=== PATIENT | female | born 1945 | race Caucasian/White ===

== ENCOUNTER 2017-08-27 11:35 | Day surgery (SDC) | payer MEDICARE, MEDICAID ==
[~2017-08-27] VITALS: Ht 165.1 cm; Wt 72.7 kg
[2017-08-27 11:45] VITALS: BP 169/71
[2017-08-27] MEDS ORDERED: MIDAZolam 5mg/5ml vial ONE (11:45)
[2017-08-27] MEDS ORDERED: fentaNYL/PF 50MCG/1 ML 2ML syringe ONE (11:45)
[2017-08-27] MEDS ORDERED: LIDOcaine Viscous 15ml cup ONE (11:46)
[2017-08-27] MEDS ORDERED: VALS80TA2 PO (11:56)
[2017-08-27] MEDS ORDERED: ATOR10TA87 PO (11:56)
[2017-08-27] MEDS ORDERED: CLOP75TA35 PO (11:56)
[2017-08-27] MEDS ORDERED: ASPI81TA52 PO (11:56)
[2017-08-27 13:50] VITALS: BP 139/70
[2017-08-27 14:00] VITALS: BP 140/56
[2017-08-27 14:10] VITALS: BP 137/68
[2017-08-27 14:20] VITALS: BP 132/57
== END 2017-08-27 14:40 | disposition home or self-care (01) ==
LOC: GI LAB 11:35
PROVIDERS: ATTEND Internal Medicine Gastroenterology
DX: D12.0 Benign neoplasm of cecum (principal); K62.1 Rectal polyp; K57.30 Diverticulosis of large intestine without perforation or abscess without bleeding; K29.50 Unspecified chronic gastritis without bleeding; K29.80 Duodenitis without bleeding; E78.5 Hyperlipidemia, unspecified; Z90.49 Acquired absence of other specified parts of digestive tract; Z90.89 Acquired absence of other organs; Z90.710 Acquired absence of both cervix and uterus; Z79.82 Long term (current) use of aspirin; Z98.890 Other specified postprocedural states; Z79.899 Other long term (current) drug therapy
CPT/HCPCS: 43239; 45385; 99153; G0500; J2250; J3010; J7030; 88305; A4620

== ENCOUNTER 2020-08-12 07:52 | Day surgery (SDC) | payer MEDICARE, MEDICAID ==
[~2020-08-12] VITALS: Ht 160 cm; Wt 73.4 kg
[2020-08-12] VITALS (11 sets, daily range): BP systolic 107–161; BP diastolic 43–57
[~2020-08-12 07:52] MED LIST: ASPI81TA52 PO; ATOR10TA87 PO; CLOP75TA34 PO; VALS80TA2 PO
[2020-08-12] MEDS ORDERED: fentaNYL/PF 50MCG/1 ML 2ML syringe ONE (09:12)
[2020-08-12] MEDS ORDERED: iohexol 350 MG/ML 50ML vial IV ONE (09:12)
[2020-08-12] MEDS ORDERED: heparin 1,000unit/ml 10ml vial 10 ML ONE (09:12)
[2020-08-12] MEDS ORDERED: iohexol 350MG/ML 100ml bottle IV ONE (09:12)
[2020-08-12] MEDS ORDERED: midazolam 1 mg/ML 2ml injection ONE ×2 (09:12→11:37)
[2020-08-12] MEDS ORDERED: LIDOcaine 1% (10mg/ml)w/preservative injection 20ml MDV ONE (09:12)
[2020-08-12 09:18] LABS: BASOPHILS # (AUTO) 0.1 X10'3 (0-0.2); BASOPHILS % (AUTO) 1.5 % (0-1); EOSINOPHILS # (AUTO) 0.2 X10'3 (0-0.9); EOSINOPHILS % (AUTO) 4.6 % (0-6); HEMATOCRIT 32.1 % (35.0-45.0); HEMOGLOBIN 10.9 g/dl (12.0-16.0); LYMPHOCYTES # (AUTO) 1.4 X10'3 (1.1-4.8); LYMPHOCYTES % (AUTO) 27.8 % (21-51); MEAN CORPUSCULAR HEMOGLOBIN 33.4 PG (27.0-31.0); MEAN CORPUSCULAR HGB CONC 34.1 g/dL (33.0-36.5); MEAN CORPUSCULAR VOLUME 97.8 FL (78-98); MEAN PLATELET VOLUME 8.2 FL (7.4-10.4); MONOCYTES # (AUTO) 0.5 X10'3 (0-0.9); MONOCYTES % (AUTO) 10.3 % (2-12); NEUTROPHILS # (AUTO) 2.9 X10'3 (1.8-7.7); NEUTROPHILS % (AUTO) 55.8 % (42-75); PLATELET COUNT 220 X10'3 (140-440); RED BLOOD COUNT 3.28 X10'6 (4.20-5.60); RED CELL DISTRIBUTION WIDTH 13.2 % (11.5-14.5); WHITE BLOOD COUNT 5.2 X10'3 (4.5-11.0)
[2020-08-12] MEDS ORDERED: ROSU40TA PO (09:23)
[2020-08-12] MEDS ORDERED: IRBE75TA8 PO (09:23)
[2020-08-12] MEDS ORDERED: AMLO5TAB PO (09:23)
[2020-08-12] MEDS ORDERED: MULT-1085 PO (09:23)
[2020-08-12 09:24] LABS: ALBUMIN 3.9 G/DL (3.4-5.0); ANION GAP 5 (8-16); BLOOD UREA NITROGEN 19 MG/DL (7-18); BUN/CREATININE RATIO 14.4 (6.6-38.0); CALCIUM 9.2 MG/DL (8.5-10.1); CHLORIDE 104 MMOL/L (99-107); CREATININE 1.32 MG/DL (0.40-0.90); GLUCOSE 100 MG/DL (70-104); MAGNESIUM 2.1 MG/DL (1.5-2.4); SODIUM 139 MMOL/L (135-145); TOTAL CARBON DIOXIDE 30.2 MMOL/L (24-32); eGFR 39 ML/MIN
[2020-08-12] MEDS ORDERED: diphenhydrAMINE 25mg capsule PO PRN (09:35)
[2020-08-12] MEDS ORDERED: normal saline 1,000 ML IV SCH (09:35)
[2020-08-12] MEDS ORDERED: ondansetron/PF 4mg/2ml inj IV PRN (12:45)
[2020-08-12] MEDS ORDERED: HYDROcodone/acetaminophen 5mg/325mg tablet PO PRN (12:45)
[2020-08-12] MEDS ORDERED: acetaminophen 325mg tablet PO PRN (12:45)
[2020-08-12] MEDS ORDERED: proCHLORperazine 10 MG/2 ml inj IV PRN (12:45)
[2020-08-12] MEDS ORDERED: HYDROcodone/acetaminophen 10/325mg tab PO PRN (12:45)
--- NOTE | 2020-08-12 13:45 | NUR ---
Report given to and care transferred to Diane KEEN. Chance given to ask questions. Addendum: 08/12/20 at 1347 by Félix Salinas RN Amended: Links added.
--- NOTE | 2020-08-12 13:52 | NUR ---
Bedside report from Nela,RN-pt VSS-rt eula site CDI-femstop in place-pedal pulses palpable X4-PIV patent
== END 2020-08-12 17:30 | disposition home or self-care (01) ==
LOC: SSTAY O 07:52
PROVIDERS: ATTEND Internal Medicine Cardiovascular Disease
DX: R94.39 Abnormal result of other cardiovascular function study (principal); I25.118 Atherosclerotic heart disease of native coronary artery with other forms of angina pectoris; I10 Essential (primary) hypertension; E78.5 Hyperlipidemia, unspecified; Z95.5 Presence of coronary angioplasty implant and graft; Z95.1 Presence of aortocoronary bypass graft
CPT/HCPCS: 36415; 80048; 83735; 85025; 85610; 93005; 93459; 99152; 99153; C1760; C1769; C1894; J1644; J2001; J2250; J3010; J7030; Q0163; Q9967; A4620; A6258